=== PATIENT | female | born 1955 | race Caucasian/White ===

== ENCOUNTER 2017-04-06 09:18 | Inpatient (IN) | payer BC ==
[2017-03-15 10:38] VITALS: BMI 31.0
--- NOTE | 2017-03-15 11:05 | PAT Medication Instructions ---
Service Date Mar 15, 2017. Current Home Medication List Aspirin (Aspirin), 1 TAB PO QAM Atorvastatin (Lipitor), 1 TAB PO QPM Enalapril (Vasotec), 20 MG PO QAM Hydrochlorothiazide (Hctz), 1 TAB PO QAM Medication Instructions For Your Scheduled Surgery - Hold the following medications the morning of surgery: Enalapril (Vasotec), 20 MG PO QAM Hydrochlorothiazide (Hctz), 1 TAB PO QAM - Take the following medications the morning of surgery with a sip of water OTHERWISE NOTHING TO EAT OR DRINK AFTER MIDNIGHT: Aspirin (Aspirin), 1 TAB PO QAM - Take the following medications as scheduled the night before surgery: Atorvastatin (Lipitor), 1 TAB PO QPM If you have any questions please call us at [phone] or [phone] or [phone]
--- NOTE | 2017-03-15 11:43 | DIAGNOSTIC IMAGING REPORT ---
CHEST 2 VIEWS ROUTINE CLINICAL HISTORY: Preoperative chest COMPARISON STUDY: No previous studies for comparison. FINDINGS: There is borderline elevation of the right hemidiaphragm. There is no focal pulmonary consolidation. The heart is normal in size. There is no failure. There are no pleural effusions.[ IMPRESSION: No active disease in the chest. Electronically signed by: Seun Edge M.D. 03/15/2017 11:41 AM Dictated Date/Time: 03/15/2017 11:41 AM
[2017-03-15 12:09] LABS: URINE APPEARANCE CLEAR (CLEAR); URINE BILIRUBIN NEG (NEG); URINE COLOR YELLOW; URINE NITRITE NEG (NEG); URINE PH 7.5 (4.5-7.5); URINE SPECIFIC GRAVITY 1.011 (1.000-1.030); UROBILINOGEN NEG (NEG); ZZUR CULT IF INDIC CLEAN CATCH NO
[2017-03-15 12:12] LABS: BASO % 0.5 %; BASO ABS # 0.03 K/uL (0-0.2); COMPLETE YES; EOS % 2.2 %; IG% 0.2 %; LYMPH % 26.6 %; LYMPH ABS # 1.54 K/uL (1.2-3.4); MEAN CELL VOLUME 92.4 fL (80-100); MEAN CORPUSCULAR HEMOGLOBIN 30.9 pg (25-34); MEAN CORPUSCULAR HGB CONC 33.5 g/dl (32-36); MEAN PLATELET VOLUME 9.8 fL (7.4-10.4); MONO % 8.1 %; NEUT % 62.4 %; PLATELET COUNT 379 K/uL (130-400); RED BLOOD COUNT 4.33 M/uL (4.2-5.4); WHITE BLOOD COUNT 5.78 K/uL (4.8-10.8)
[2017-03-15 12:18] LABS: MANUAL MICROSCOPIC REQUIRED? NO; REVIEW REQ? NO
[2017-03-15 12:19] LABS: INR 0.9 (0.9-1.1)
[2017-03-15 12:52] LABS: ESTIMATED AVERAGE GLUCOSE 120 mg/dl; HA1C FLAG Normal (Normal)
[2017-03-15 13:33] LABS: BUN/CREATININE RATIO 15.2 (10-20); CALCIUM 9.6 mg/dl (8.5-10.1); CREATININE 0.91 mg/dl (0.60-1.20); POTASSIUM 4.2 mmol/L (3.5-5.1)
--- NOTE | 2017-04-05 21:56 | History and Physical ---
History & Physical Date & Time of Service: Apr 05, 2017 at 21:49 Chief Complaint: Right Shoulder Rotator Cuff Arthropathy Primary Care Physician: Devan Tena PA-C History of Present Illness Source: patient Social History Smoking Status: Former Smoker Alcohol Use: occasionally Allergies Coded Allergies: NO KNOWN DRUG ALLERGIES (Verified Allergy, Unknown, nkda, 03/15/17) Home Medications Scheduled Aspirin (Aspirin), 1 TAB PO QAM Atorvastatin (Lipitor), 1 TAB PO QPM Enalapril (Vasotec), 20 MG PO QAM Hydrochlorothiazide (Hctz), 1 TAB PO QAM Review of Systems Cardiovascular: + problem reported (HTn, hypercholesterolemia), No chest pain, No orthopnea, No PND, No edema, No claudication, No palpitations Physical Exam General Appearance: WD/WN Head: normocephalic, atraumatic Eyes: PERRL, EOMI Neck: supple Respiratory/Chest: lungs clear Cardiovascular: regular rate, rhythm Abdomen/GI: normal bowel sounds, non tender (shoulder 3/5 strenth, crepitation , pain w ROM.) Impression Assessment and Plan Right shoulder OA and RCT Level of Care Med/Surg Advanced Directives Existing Advance Directive: Yes Existing Living Will: Yes Existing Power of Industrial Court Magistrate: Yes
[2017-04-06] VITALS (7 sets, daily range): BP systolic 104–181; BP diastolic 65–76; PULSE 67–81; TEMP 36.4–38; O2SAT 95–99; Ht 162.6 cm; Wt 82.4 kg
[~2017-04-06] VITALS: Ht 162.6 cm; Wt 82.4 kg
[~2017-04-06 09:18] MED LIST: ACETAMINOPHEN 500 MG TAB PO SCH; ASPI81CH2 PO; ATOR-26 PO; BUPIVACAINE/EPINEPHRINE 0.25% 1:200,000 30 ML VIAL ONE; CEFAZOLIN 2000 MG/60 ML D5W 60 ML IV SCH; CeleBREX 200 MG CAP PO SCH; DEXAMETHASONE 4 MG TAB PO SCH; DEXAMETHASONE SOD INJ 4 MG/ML VIAL ONE; ENAL10TA88 PO; FAMOTIDINE 20 MG TAB PO SCH; GABAPENTIN 300 MG CAP PO SCH; HYDR25TA4 PO; LACTATED RINGER'S 1000ML 1,000 ML IV SCH; METOCLOPRAMIDE HCL 10 MG TAB PO SCH
--- NOTE | 2017-04-06 10:15 | History & Physical Bridge Note ---
H&P Re-Evaluation Bridge Note: I have examined the patient, reviewed the History & Physical and in the interval since the performance of the History & Physical I have noted the following changes of clinical significance: No changes noted
[2017-04-06] MEDS ORDERED: ROCURONIUM BROMIDE 10 MG/ML 5 ML VIAL ONE ×2 (10:20→13:23)
[2017-04-06] MEDS ORDERED: NEOSTIGMINE METHYLSULFATE 5 MG/5 ML SYR ONE (10:20)
[2017-04-06] MEDS ORDERED: PROPOFOL IV EMULSION 10 MG/ML 20 ML VIAL IV ONE (10:20)
[2017-04-06] MEDS ORDERED: FENTANYL CITRATE INJ 50 MCG/1 ML 2 ML VIAL ONE (10:20)
[2017-04-06] MEDS ORDERED: MIDAZOLAM HCL 1 MG/ML 2ML VIAL ONE ×2 (10:20)
[2017-04-06] MEDS ORDERED: GLYCOPYRROLATE INJ 0.2 MG/ML VIAL ONE (10:20)
[2017-04-06] MEDS ORDERED: DEXAMETHASONE SOD INJ 4 MG/ML VIAL ONE (10:20)
[2017-04-06] MEDS ORDERED: ONDANSETRON INJ 2 MG/ML 2 ML VIAL ONE (10:20)
[2017-04-06] MEDS ORDERED: LIDOCAINE HCL 2% 2 ML VIAL (20MG/ML) ONE (10:20)
[2017-04-06] MEDS ORDERED: EpINEphrine HCL INJ 1 MG/ML 5ML SYRINGE ONE (10:51)
[2017-04-06] MEDS ORDERED: PROMETHAZINE HCL INJ 6.25 MG in SODIUM CHLORIDE 0.9% 50ML 50 ML IV PRN (11:45)
[2017-04-06] MEDS ORDERED: FENTANYL CITRATE INJ 50 MCG/1 ML 2 ML VIAL IV PRN (11:45)
[2017-04-06] MEDS ORDERED: ATROPINE SULFATE 0.1 MG/ML 5ML SYR IV PRN (11:45)
[2017-04-06] MEDS ORDERED: EpHEDrine SULFATE INJ 50 MG/ML AMP IV PRN (11:45)
[2017-04-06] MEDS ORDERED: ONDANSETRON INJ 2 MG/ML 2 ML VIAL IV PRN ×2 (11:45→13:30)
[2017-04-06] MEDS ORDERED: ZOLPIDEM TARTRATE 5 MG TAB PO PRN (13:30)
[2017-04-06] MEDS ORDERED: OXYCODONE HCL IR 5 MG TAB (IMMEDIATE RELEASE) PO PRN (13:30)
[2017-04-06] MEDS ORDERED: SOD PHOSPHATE/SOD BIPHOSPHATE ENEMA 132 ML BTL PR PRN (13:30)
[2017-04-06] MEDS ORDERED: MoRPHine SULFATE 2 MG/ML CARP IV PRN (13:30)
[2017-04-06] MEDS ORDERED: PHENYLEPHRINE 100MCG/ML 5ML SYR ONE (13:30)
[2017-04-06] MEDS ORDERED: NALOXONE HCL 0.4 MG/1 ML VIAL/CARP IV PRN (13:30)
[2017-04-06] MEDS ORDERED: EpHEDrine SULFATE 50MG/5ML SYR ONE (13:30)
[2017-04-06] MEDS ORDERED: BISACODYL 10 MG SUPP PR PRN (13:30)
[2017-04-06] MEDS ORDERED: MAGNESIUM HYDROXIDE SUSP 30 ML UDC PO PRN (13:30)
[2017-04-06] MEDS ORDERED: MoRPHine SULFATE 4 MG/ML 1 ML CARP\\VIAL IV PRN (13:45)
[2017-04-06] MEDS ORDERED: BACITRACIN 50000 UNIT VIAL IR ONE (14:18)
--- NOTE | 2017-04-06 14:27 | [facility] Operative Report ---
Operative Report Operative Date Apr 06, 2017. Pre-Operative Diagnosis Right shoulder rotator cuff arthropathy non repairable rotator cuff tear and biceps tendon dislocation Post-Operative Diagnosis same Procedure(s) Performed reversed total shoulder replacement and biceps tenodesis Surgeon Dr. Bang Alicea Vending Route Driver Surgeon(s) Bob Damon PA-C Estimated Blood Loss 100 ML Findings as above Specimens a. right humeral head Drains 2 hemovac Anesthesia general and regional Complication(s) None Disposition Recovery Room / PACU Indications pseudoparalytic arm chronic pain and weakness I attest to the content of the Intraoperative Record and any orders documented therein. Any exceptions are noted below.
--- NOTE | 2017-04-06 15:10 | Anesthesiology Progress Note ---
Anesthesia Post Op Note Date & Time Apr 06, 2017 at 15:10 Vital Signs Pain Intensity: 0 Vital Signs Past 12 Hours Date Time Temp Pulse Resp B/P (MAP) Pulse Ox O2 Delivery O2 Flow Rate FiO2 04/06/17 15:05 36.4 83 14 140/69 95 Nasal Cannula 2 04/06/17 14:55 80 14 124/50 96 Oxymask 10 04/06/17 14:45 73 14 121/54 98 Oxymask 10 04/06/17 14:36 36.7 80 14 139/64 97 Oxymask 10 04/06/17 09:39 36.8 71 20 181/69 99 Room Air Notes Mental Status: alert / awake / arousable, participated in evaluation Pt Amnestic to Procedure: Yes Nausea / Vomiting: adequately controlled Pain: adequately controlled Airway Patency, RR, SpO2: stable & adequate BP & HR: stable & adequate Hydration State: stable & adequate Anesthetic Complications: no major complications apparent
--- NOTE | 2017-04-06 15:31 | DIAGNOSTIC IMAGING REPORT ---
RIGHT SHOULDER MIN 2 VIEWS ROUTINE CLINICAL HISTORY: Post shoulder surgery Right pain COMPARISON: None. DISCUSSION: Evidence for a total right shoulder arthroplasty. Good contact between prosthetic and the Bone. Surgical drains are in position. There is no evidence for soft tissue swelling. IMPRESSION: Anatomic alignment status post total right shoulder replacement Electronically signed by: Otoniel Veras M.D. 04/06/2017 3:29 PM Dictated Date/Time: 04/06/2017 3:29 PM
[2017-04-06] MEDS: D5W AND 1/2NSS + 20MEQ KCL 1,000 ML IV SCH (16:23)
--- NOTE | 2017-04-06 18:14 | Medical Consult ---
Consultation Date of Consultation: Apr 06, 2017 @ 16:00 . Attending Physician: Bang Alicea M.D. . Reason for Consultation: medical management . History of Present Illness 62 YO female followed by Devan Tena PA-C in [place]. History of hypertension, dyslipidemia, and other problems noted below. Reversed total shoulder replacement and biceps tenodesis performed today by Dr. Alicea under general and regional anesthesia. Doing well postoperatively. No chest pain. No cough or dyspnea. No nausea or vomiting. Has Mirza catheter. Postop pain well-controlled. . Past Medical/Surgical History Chronic and Resolved Medical Problems: (1) Carotid artery disease Status: Chronic (2) Dyslipidemia Status: Chronic (3) History of adenomatous polyp of colon Status: Chronic (4) Hypertension Status: Chronic Surgical Problems: (1) Status post arthroscopy of shoulder Status: Chronic (2) Status post colonoscopy Status: Chronic (3) Status post hysterectomy Status: Chronic . Family History FATHER Prostate cancer Thrombocytosis MOTHER Heart disease BROTHER Bladder cancer SISTER Breast cancer GRANDFATHER Heart disease GRANDMOTHER Diabetes mellitus Heart disease Social History Smoking Status: Former Smoker Alcohol Use: socially Allergies Coded Allergies: NO KNOWN DRUG ALLERGIES (Verified Allergy, Unknown, nkda, 04/06/17) Home Medications Reported Home Medications Medications Dose Route/Sig Max Daily Dose Days Date Category Vasotec (Enalapril Maleate) 10 Mg Tab 20 Mg PO QAM 03/15/17 Reported Aspirin 81 Mg Chw 1 Tab PO QAM 30 03/15/17 Reported Hctz (Hydrochlorothiazide) 25 Mg Tab 1 Tab PO QAM 30 03/15/17 Reported Lipitor (Atorvastatin Calcium) 80 Mg Tab 1 Tab PO QPM 30 03/15/17 Reported Current Inpatient Medications Current Inpatient Medications Medications (Trade) Dose Ordered Sig/Calos Route Start Time Stop Time Status Last Admin Dose Admin Celecoxib (CeleBREX CAP) 200 mg PREOP PO 04/06/17 06:00 04/06/17 23:59 04/06/17 10:04 200 MG Dexamethasone (Decadron Tab) 8 mg PREOP PO 04/06/17 06:00 04/06/17 23:59 04/06/17 10:03 8 MG Famotidine (Pepcid Tab) 20 mg PREOP PO 04/06/17 06:00 04/06/17 23:59 04/06/17 10:04 20 MG Gabapentin (Neurontin Cap) 600 mg PREOP PO 04/06/17 06:00 04/06/17 23:59 04/06/17 10:03 600 MG Metoclopramide HCl (Reglan Tab) 10 mg PREOP PO 04/06/17 06:00 04/06/17 23:59 04/06/17 10:03 10 MG Cefazolin Sodium 60 ml @ 100 mls/hr PREOP IV 04/06/17 06:00 04/07/17 05:59 04/06/17 11:42 100 MLS/HR Acetaminophen (Tylenol Tab) 1,000 mg PREOP PO 04/06/17 06:00 04/06/17 23:59 04/06/17 10:04 1,000 MG Aspirin (Ecotrin Tab) 81 mg QAM PO 04/07/17 09:00 05/07/17 08:59 Atorvastatin Calcium (Lipitor Tab) 80 mg QPM PO 04/06/17 21:00 05/06/17 20:59 Enalapril Maleate (Vasotec Tab) 20 mg QAM PO 04/07/17 09:00 05/07/17 08:59 Hydrochlorothiazide (Hydrochlorothiazide Tab) 25 mg QAM PO 04/07/17 09:00 05/07/17 08:59 Diphenhydramine HCl (Benadryl Cap) 25 mg Q8 PRN PO 04/06/17 13:30 05/06/17 13:29 Zolpidem Tartrate (Ambien Tab) 5 mg HSZ PRN PO 04/06/17 13:30 05/06/17 13:29 Ondansetron HCl (Zofran Inj) 4 mg Q6H PRN IV 04/06/17 13:30 05/06/17 13:29 Pantoprazole Sodium (Protonix Tab) 40 mg QAM PO 04/07/17 09:00 05/07/17 08:59 Potassium Chloride/Dextrose/ Sod Cl 1,000 ml @ 100 mls/hr Q10H IV 04/06/17 16:30 04/07/17 16:29 04/06/17 16:23 100 MLS/HR Oxycodone HCl (Roxicodone Immediate Rel Tab) `1-2 TABS FOR PAIN `1 TAB... Q4H PRN PO 04/06/17 13:30 04/20/17 13:29 Oxycodone HCl (Oxycontin Tab) 10 mg Q12 PO 04/06/17 21:00 04/20/17 20:59 Acetaminophen (Tylenol Tab) 1,000 mg Q8 PO 04/06/17 20:00 05/06/17 19:59 Morphine Sulfate (MoRPHine SULFATE INJ) 2 mg Q2H PRN IV 04/06/17 13:30 04/20/17 13:29 Naloxone HCl (Narcan Inj) 0.1 mg Q2M PRN IV 04/06/17 13:30 05/06/17 13:29 Magnesium Hydroxide (Milk Of Magnesia Susp) 30 ml Q6H PRN PO 04/06/17 13:30 05/06/17 13:29 Bisacodyl (Dulcolax Supp) 10 mg DAILY PRN [place] 04/06/17 13:30 05/06/17 13:29 Sodium Biphosphate/ Sodium Phosphate (Fleet Enema) 132 ml DAILY PRN [place] 04/06/17 13:30 05/06/17 13:29 Docusate Sodium (coLACE CAP) 100 mg BID PO 04/06/17 21:00 05/06/17 20:59 Multivitamins (Multivitamin Tab) 1 tab DAILY PO 04/07/17 09:00 05/07/17 08:59 Cefazolin Sodium 2000 mg/Dextrose 60 ml @ 100 mls/hr Q8H IV 04/06/17 20:00 04/07/17 04:35 Morphine Sulfate (MoRPHine SULFATE INJ) 4 mg Q2H PRN IV 04/06/17 13:45 04/20/17 13:44 Review of Systems Constitutional: No fever, No weight loss Respiratory: No cough, No shortness of breath Cardiovascular: No chest pain Abdomen: No nausea, No vomiting, No GI bleeding Musculoskeletal: + joint pain (right shoulder) Genitourinary - Female: No dysuria, No hematuria Hematologic / Lymphatic: No abnormal bleeding/bruising Physical Exam Date Time Temp Pulse Resp B/P (MAP) Pulse Ox O2 Delivery O2 Flow Rate FiO2 04/06/17 17:29 38.0 79 16 126/76 (93) 98 Nasal Cannula 2.0 04/06/17 16:34 36.4 71 18 115/73 (87) 95 Nasal Cannula 2.0 04/06/17 16:00 36.5 67 18 104/65 (78) 96 Nasal Cannula 2.0 04/06/17 15:30 98 Nasal Cannula 2.0 04/06/17 15:30 37.0 81 16 111/70 (84) 96 04/06/17 15:30 Nasal Cannula 2.0 04/06/17 15:15 36.4 71 14 122/58 95 Nasal Cannula 2 04/06/17 15:05 36.4 83 14 140/69 95 Nasal Cannula 2 04/06/17 14:55 80 14 124/50 96 Oxymask 10 04/06/17 14:45 73 14 121/54 98 Oxymask 10 04/06/17 14:36 36.7 80 14 139/64 97 Oxymask 10 04/06/17 09:39 36.8 71 20 181/69 99 Room Air General Appearance: WD/WN, no apparent distress Head: normocephalic, atraumatic Eyes: PERRL, EOMI, sclerae normal ENT: normal ENT inspection, hearing grossly normal, pharynx normal Neck: supple, no adenopathy Respiratory/Chest: lungs clear, no respiratory distress, no accessory muscle use Cardiovascular: regular rate, rhythm, no edema, no gallop, no JVD, + systolic murmur (II/ sys murmur at base) Abdomen/GI: normal bowel sounds, non tender, soft, no organomegaly Extremities/Musculoskelatal: no calf tenderness, + pertinent finding (right shoulder bandaged; RUE immobilized; TEDS and SCD's applied to lower extremities) Neurologic/Psych: silk brusher II-XII nml as tested (PERRL, EOMI, no facial palsy, no dysarthria), no motor/sensory deficits (motor strenth grossly intact), alert, oriented x 3 Skin: normal color, warm/dry, no rash Laboratory Results Preadmission testing: Item Value Date Time Hemoglobin 13.4 g/dL 03/15/17 1112 White Blood Count 5.78 K/uL 03/15/17 1112 Platelet Count 379 K/uL 03/15/17 1112 Prothrombin Time 10.0 SECONDS 03/15/17 1112 Prothromb Time International Ratio 0.9 03/15/17 1112 Activated Partial Thromboplast Time 24.7 SECONDS 03/15/17 1112 Sodium Level 138 mmol/L 03/15/17 1112 Potassium Level 4.2 mmol/L 03/15/17 1112 Chloride Level 102 mmol/L 03/15/17 1112 Carbon Dioxide Level 30 mmol/L 03/15/17 1112 Blood Urea Nitrogen 14 mg/dl 03/15/17 1112 Creatinine 0.91 mg/dl 03/15/17 1112 Random Glucose 89 mg/dl 03/15/17 1112 Hemoglobin A1c 5.8 % H 03/15/17 1112 Urine Protein NEG 03/15/17 1112 Urine Glucose (UA) NEG 03/15/17 1112 Urine Ketones NEG 03/15/17 1112 Urine Occult Blood NEG 03/15/17 1112 Urine Nitrite NEG 03/15/17 1112 Urine Bilirubin NEG 03/15/17 1112 Urine Urobilinogen NEG 03/15/17 1112 Urine Leukocyte Esterase NEG 03/15/17 1112 CHEST 2 VIEWS ROUTINE CLINICAL HISTORY: Preoperative chest COMPARISON STUDY: No previous studies for comparison. FINDINGS: There is borderline elevation of the right hemidiaphragm. There is no focal pulmonary consolidation. The heart is normal in size. There is no failure. There are no pleural effusions.[ IMPRESSION: No active disease in the chest. Electronically signed by: Seun Edge M.D. 03/15/2017 11:41 AM Dictated Date/Time: 03/15/2017 11:41 AM EKG performed 03/15/17 at 11:16 reviewed and demonstrated NSR at 60 / minute, no acute ST or T-wave abnormalities. . Assessment & Plan STATUS POST REVERSED TOTAL SHOULDER REPLACEMENT AND BICEPS TENODESIS Doing well postoperatively. HYPERTENSION BP's stable postoperatively. Resume HCTZ on POD # 2. Continue enalapril with hold parameters. DYSLIPIDEMIA Continue atorvastatin. CAROTID ARTERY DISEASE Continue aspirin. Continue management of hypertension and dyslipidemia. VTE PROPHYLAXIS Per Ortho protocol. Thank you for this consultation. We will follow the patient with you during their hospital stay. You can reach a [facility] via pager @ [phone]. You can reach me via cell @ [phone]. .
--- NOTE | 2017-04-06 18:24 | [facility] Operative Report ---
Operative Report Operative Date Apr 06, 2017. Pre-Operative Diagnosis Right shoulder rotator cuff arthropathy non repairable rotator cuff tear and biceps tendon dislocation Post-Operative Diagnosis same Procedure(s) Performed Right shoulder reversed total shoulder arthroplasty. The patient was taken to the operating room and anesthetized under regional block and general anesthetic. The patient was positioned on the operating table in a 30 beachchair position with a towel roll under due to border of the right scapula. The arm was draped free to be able to manipulate the shoulder as needed. The right upper extremity was prepped and draped in usual sterile fashion. Exam demonstrated excellent range of motion with subacromial crepitation.. An anterior deltopectoral approach was performed. A longitudinal incision was made in the deltopectoral interval. The skin was incised. Subcutaneous flaps were elevated off the fascia. The cephalic vein was dissected out and retracted lateral with the deltoid. The clavipectoral fascia was divided at the lateral margin of the conjoined tendon and extended up to the CA ligament. The following findings were noted. There was a thickened bursitis over the rotator cuff area. There was a complete rotator cuff tear involving the supraspinatus and infraspinatus tendons with retraction felt to be nonrepairable. The upper subscapularis tendon was also torn with the biceps tendon dislocated underneath the subscapularis tendon anteriorly. There was mild to moderate degenerative changes mainly the upper humeral head from being exposed and impingement. The upper centimeter of the pectoralis was released for inferior exposure. The biceps tendon was tenodesed to the pectoralis tendon with #2 FiberWire. The proximal biceps was resected. The subacromial bursa was thoroughly resected revealing the underlying rotator cuff pathology. The subscapularis tendon was taken down off the lesser tuberosity using a subperiosteal dissection. A #1 Vicryl traction suture was placed into the free end of the subscapularis tendon and capsule. The subscapular muscle fibers were split longitudinally at the level of the circumflex vessels. The circumflex vessels were identified and tied off with silk ties and divided laterally. A Kitner elevator was used to free up the inferior fibers of the subscapularis off of the capsule. The capsule was divided with Palomino scissors down to the glenoid released off the anterior glenoid and the rotator interval was released to meet the capsular release and a 360 release of the subscapularis was accomplished. We did identify the axillary nerve tug test and protected with the blunt Hohmann retractor. A Fukuda retractor was placed into the joint. Glenoid findings demonstrated intact articular cartilage and labrum and biceps anchor.. The labrum and biceps tendon was resected. An anterior-inferior and posterior inferior capsular release were performed with electrocautery and a Zavaleta elevator on bone with the nerve protected inferiorly by the retractor. The Tornier reversed shoulder replacement system was used using the Nadeem and flex humeral component and Aequalis glenoid components. Attention was then taken to the humeral preparation. The cutting guide was placed into the humeral head. It was positioned at 20 of retroversion. Oscillating saw was used to resect the humeral head giving the cut above the level of the posterior rotator cuff insertion site. The right was then retracted posterior to the glenoid. The glenoid was sized for a 25 mm baseplate. The guide for the baseplate was positioned in a 10 inferior tilt and the central drill hole was made. The reamer for the 25 mm baseplate was used. The central drill was widened for the peg. The 25 mm baseplate was impacted into position. The plate was transfixed with superior and inferior locking screws and anterior and posterior compression screws with stable fixation. The fan reamer was used for the 36 millimeter glenoid sphere. After irrigation the glenoid sphere was impacted onto the baseplate and the screw was tightened. Fixation was assessed is stable. Humeral preparation was then performed. A central awl was used followed by broaches up to a size 4 . This had the appropriate fit and fill. A +0 centered reversed tray baseplate was then placed. A trial reduction was performed. A[+6 mm] trial insert demonstrated good stability and no shuck. The trials were removed. 3 drill holes are made into the harder bone in the bicipital groove area and 3 #5 FiberWire sutures were placed transosseously. The canal was irrigated with antibiotic solution with bacitracin. The final component was assembled. The final component was for B longstem descend flex stem with +0 centered reversed tray with 36 mm +6 reversed insert. This was then impacted into the humerus with a tight press-fit. It was reduced to the glenoid sphere. Stability was verified. Subscapularis was repaired with the # 5 FiberWire sutures using Drew-Shukri suture technique. Lateral row soft tissue repair was performed with #2 FiberWire [id number] sutures. The pectoralis was repaired with #2 FiberWire [id number] sutures reinforcing the biceps tendon tenodesis. The arm was taken through a range of motion which demonstrated no tension on repair through 50 of external rotation 150 of forward elevation and 90 of abduction. The implant was stable through full range of motion tested. The wound was copiously irrigated. 2 Hemovac drains were placed. The deltopectoral interval was closed with [id number] #1 Vicryl sutures. The subcutaneous tissues were closed with 2-0 Vicryl sutures. The skin was closed with zenaida. Sterile dressings were applied and a shoulder immobilizer. Bob FISCHER My physician commercial lending assistant assisted in the procedure to the entire procedure including patient positioning arm positioning prepping and draping soft tissue retraction insert management suture management and perform the subcutaneous and skin closure and will dissipate in the postoperative care of the patient. Surgeon Dr. Bang Alicea Car Salesperson Surgeon(s) Bob Damon PA-C Estimated Blood Loss 100 ML Findings Nonrepairable rotator cuff early rotator cuff arthropathy biceps dislocation Specimens a. right humeral head Drains 2 hemovac Anesthesia general and regional Complication(s) None Disposition Recovery Room / PACU Indications Pseudo-paralytic arm chronic nonrepairable rotator cuff tear early rotator cuff arthropathy failed conservative management I attest to the content of the Intraoperative Record and any orders documented therein. Any exceptions are noted below.
[2017-04-06] MEDS: ACETAMINOPHEN 500 MG TAB PO SCH (19:30)
[2017-04-06] MEDS: CEFAZOLIN IV 2,000 MG in DEXTROSE 5% 50ML 50 ML IV SCH (19:32)
[2017-04-06] MEDS: OXYCODONE HCL 10 MG TABCR (OXYCONTIN) PO SCH (21:05)
[2017-04-06] MEDS: ATORVASTATIN 40 MG TAB PO SCH (21:05)
[2017-04-06] MEDS: DOCUSATE SODIUM 100 MG CAP PO SCH (21:06)
[2017-04-07] MEDS: D5W AND 1/2NSS + 20MEQ KCL 1,000 ML IV SCH (01:34)
[2017-04-07 03:51] VITALS: BP 119/75; PULSE 75; TEMP 36.5; O2SAT 95
[2017-04-07] MEDS: CEFAZOLIN IV 2,000 MG in DEXTROSE 5% 50ML 50 ML IV SCH (04:12)
[2017-04-07 05:50] LABS: HEMATOCRIT 32.6 % (37-47); MEAN CELL VOLUME 92.9 fL (80-100); MEAN CORPUSCULAR HEMOGLOBIN 30.8 pg (25-34); MEAN CORPUSCULAR HGB CONC 33.1 g/dl (32-36); MEAN PLATELET VOLUME 9.7 fL (7.4-10.4); PLATELET COUNT 334 K/uL (130-400); RED BLOOD COUNT 3.51 M/uL (4.2-5.4); WHITE BLOOD COUNT 12.88 K/uL (4.8-10.8)
[2017-04-07] MEDS: ACETAMINOPHEN 500 MG TAB PO SCH ×3 (05:51→21:50)
[2017-04-07 06:24] LABS: BUN/CREATININE RATIO 12.6 (10-20); CREATININE 0.89 mg/dl (0.60-1.20); POTASSIUM 4.7 mmol/L (3.5-5.1)
[2017-04-07 06:49] LABS: CALCIUM 9.2 mg/dl (8.5-10.1)
[2017-04-07 07:05] VITALS: BP 114/64; PULSE 65; TEMP 36.8; O2SAT 94
--- NOTE | 2017-04-07 07:49 | Orthopedic Progress Note ---
Orthopedic Progress Note Date of Service Apr 07, 2017. Subjective Post OP Day: 1 Reports: feeling well, Denies: complaints, chest pain, SOB, nausea / vomiting, light headedness Additional Notes: Awake, alert. Pain controlled at present. Objective dressing C/D/I, A&O x3, hemovac drainage (25ml latest shift) Moving the wrist/hand/fingers well of the RUE. Still having some residual decreased sensation in the hand. Date Time Temp Pulse Resp B/P (MAP) Pulse Ox O2 Delivery O2 Flow Rate FiO2 04/07/17 07:05 36.8 65 18 114/64 (81) 94 Room Air 04/07/17 03:51 36.5 75 16 119/75 (90) 95 Room Air 04/06/17 22:55 36.4 76 16 117/66 (83) 96 Room Air 04/06/17 19:20 Room Air 04/06/17 18:31 36.6 69 18 112/68 (83) 96 Nasal Cannula 2.0 04/06/17 17:29 38.0 79 16 126/76 (93) 98 Nasal Cannula 2.0 04/06/17 16:34 36.4 71 18 115/73 (87) 95 Nasal Cannula 2.0 04/06/17 16:00 36.5 67 18 104/65 (78) 96 Nasal Cannula 2.0 04/06/17 15:30 98 Nasal Cannula 2.0 04/06/17 15:30 37.0 81 16 111/70 (84) 96 04/06/17 15:30 Nasal Cannula 2.0 04/06/17 15:15 36.4 71 14 122/58 95 Nasal Cannula 2 04/06/17 15:05 36.4 83 14 140/69 95 Nasal Cannula 2 04/06/17 14:55 80 14 124/50 96 Oxymask 10 04/06/17 14:45 73 14 121/54 98 Oxymask 10 04/06/17 14:36 36.7 80 14 139/64 97 Oxymask 10 04/06/17 09:39 36.8 71 20 181/69 99 Room Air Laboratory Results 24 Hours: Test 04/07/17 05:19 Hematocrit 32.6 % Hemoglobin 10.8 g/dL Assessment & Plan Assessment: POD 1 s/p Right Reverse TSA Plan: PT/OT today Planning for home with OPPT Inhouse Planning Pain Management: Oxycontin, Morphine, Oxy IR DVT Prophylaxis: TEDs, SCDs, ASA Discharge Planning Discharge Planning: home with oppt
[2017-04-07] MEDS: DOCUSATE SODIUM 100 MG CAP PO SCH ×2 (08:35→21:49)
[2017-04-07] MEDS: ENALAPRIL MALEATE 10 MG TAB PO SCH (08:36)
[2017-04-07] MEDS: ASPIRIN 81 MG ECTAB PO SCH (08:37)
[2017-04-07] MEDS: MULTIVITAMIN TAB PO SCH (08:37)
[2017-04-07] MEDS: PANTOprazole SOD 40 MG TAB PO SCH (08:38)
[2017-04-07] MEDS: OXYCODONE HCL 10 MG TABCR (OXYCONTIN) PO SCH ×2 (08:41→21:50)
[2017-04-07] MEDS ORDERED: HYDROCHLOROTHIAZIDE 25 MG TAB PO SCH (09:00)
--- NOTE | 2017-04-07 10:21 | Anesthesiology Progress Note ---
Anesthesia Post Op Note Date & Time Apr 07, 2017 at 10:20 Vital Signs Pain Intensity: 0.0 Vital Signs Past 12 Hours Date Time Temp Pulse Resp B/P (MAP) Pulse Ox O2 Delivery O2 Flow Rate FiO2 04/07/17 07:05 36.8 65 18 114/64 (81) 94 Room Air 04/07/17 03:51 36.5 75 16 119/75 (90) 95 Room Air 04/06/17 22:55 36.4 76 16 117/66 (83) 96 Room Air Notes Mental Status: alert / awake / arousable, participated in evaluation Pt Amnestic to Procedure: Yes Nausea / Vomiting: adequately controlled Pain: adequately controlled Airway Patency, RR, SpO2: stable & adequate BP & HR: stable & adequate Hydration State: stable & adequate Anesthetic Complications: no major complications apparent
[2017-04-07 10:57] VITALS: BP 107/67; PULSE 66; TEMP 36.3; O2SAT 98
[2017-04-07] MEDS ORDERED: NURSING VERBAL MED ORDER ONE ×2 (12:15→14:00)
[2017-04-07] MEDS ORDERED: KETOROLAC TROMETHAMINE 15 MG/ML VIAL IV. SCH (14:00)
[2017-04-07] MEDS: KETOROLAC TROMETHAMINE 30 MG/ML VIAL IV. SCH ×2 (14:20→21:09)
[2017-04-07 15:40] VITALS: O2SAT 98
--- NOTE | 2017-04-07 16:23 | Discharge Instructions ---
Discharge Instructions Date of Service Apr 07, 2017. Admission Reason for Admission: Right Shoulder Rotator Cuff Arthropathy Discharge Discharge Diagnosis / Problem: Right shoulder rotator cuff arthropathy non repairable rotator cuff tear Discharge Goals Goal(s): Decrease discomfort, Improve function Activity Recommendations Activity Limitations: per Instructions/Follow-up section Weightbearing Status: Right non-weightbearing . Instructions / Follow-Up Instructions / Follow-Up ACTIVITY RECOMMENDATIONS: SELF CARE INSTRUCTIONS AFTER TOTAL SHOULDER ARTHROPLASTY REVERSE A. You may do daily exercises as taught in physical therapy while in hospital. No lifting with the operative arm. B. You are to wear your sling/immobilizer at all times EXCEPT when performing your daily exercises and for hygiene purposes. C. You may perform dry, daily dressing changes. Please keep your incision covered. You may shower 48 hours after surgery. Do not apply soap or any ointment/ lotions directly over incision. Do not soak incision in bath tub/swimming pool. D. You may use ice as needed to operative shoulder. SPECIAL CARE INSTRUCTIONS: VERY IMPORTANT TO READ AND REVIEW A. There are a few signs you need to watch for after you are home. Call [facility] at [phone] if you experience any of the followin. Increased severe shoulder pain. Some pain is expected especially when you exercise. 2. Increased swelling in you shoulder or arm; pain or swelling in either upper extremity. 3. Any fluid drainage from the incision. 4. Shortness of breath or chest pain. B. Please call [facility] at [phone] if you have any questions or concerns about your operation or recovery. C. Call your physician if: 1. Temperature is greater than 101 degrees (F). 2. Pain is not relieved by prescribed pain medications. 3. Increase drainage or redness from incision. 4. Unanswered questions or concerns. FOLLOW UP VISIT: Please call [facility] at [phone] to schedule a follow up appointment with Dr. Alicea or his PA in 12-14 days from your surgery date. Current Hospital Diet Patient's current hospital diet: Regular Diet Discharge Diet Recommended Diet: Regular Diet Procedures Procedures Performed: Right Reversed Total Shoulder Arthroplasty Pending Studies Studies pending at discharge: no Laboratory Results Hemoglobin A1c Test 03/15/17 11:12 Range/Units Estimated Average Glucose 120 mg/dl Hemoglobin A1c 5.8 H 4.5-5.6 % Medical Emergencies . Who to Call and When: Medical Emergencies: If at any time you feel your situation is an emergency, please call 911 immediately. . Non-Emergent Contact Non-Emergency issues call your: Surgeon Call Non-Emergent contact if: temperature is above 101.5, your pain is not controlled, your pain is worsening, wound has increased drainage, wound has increased redness . "Provider Documentation" section prepared by Bob Damon. . VTE Core Measure Inpt VTE Proph given/why not?: Other Anticoagulation, T.E.D. Stockings, SCD's [place] Drug Monitoring Program Search Results: patient reviewed within database, no issues identified
[2017-04-07 16:27] VITALS: BP 131/71; PULSE 63; TEMP 36.5; O2SAT 96
[2017-04-07] MEDS: ATORVASTATIN 40 MG TAB PO SCH (22:18)
[2017-04-07 23:19] VITALS: BP 106/62; PULSE 62; TEMP 37; O2SAT 90
[2017-04-08] MEDS: KETOROLAC TROMETHAMINE 30 MG/ML VIAL IV. SCH ×2 (01:48→07:07)
--- NOTE | 2017-04-08 04:58 | Progress Note ---
Medicine Progress Note Date & Time of Visit: Apr 07, 2017 at 11:50 . Subjective Doing well postoperatively. No chest pain. No cough or dyspnea. No nausea or vomiting. Mirza removed. Postop pain well-controlled. . Objective Last 8 Hrs Date Time Temp Pulse Resp B/P (MAP) Pulse Ox O2 Delivery O2 Flow Rate FiO2 04/07/17 10:57 36.3 66 18 107/67 (80) 98 Room Air 04/07/17 08:30 Room Air 04/07/17 07:05 36.8 65 18 114/64 (81) 94 Room Air Physical Exam: General- sitting in chair, no distress Lungs- clear Heart- RRR Abdomen- + BS, soft, nontender Extremities- RUE immobilized; TEDS applied; no pretibial edema or calf tenderness Neuro- alert . Laboratory Results: Last 24 Hours Test 04/07/17 05:19 White Blood Count 12.88 K/uL Red Blood Count 3.51 M/uL Hemoglobin 10.8 g/dL Hematocrit 32.6 % Mean Corpuscular Volume 92.9 fL Mean Corpuscular Hemoglobin 30.8 pg Mean Corpuscular Hemoglobin Concent 33.1 g/dl RDW Standard Deviation 45.3 fL RDW Coefficient of Variation 13.4 % Platelet Count 334 K/uL Mean Platelet Volume 9.7 fL Sodium Level 141 mmol/L Potassium Level 4.7 mmol/L Chloride Level 107 mmol/L Carbon Dioxide Level 28 mmol/L Anion Gap 6.0 mmol/L Blood Urea Nitrogen 11 mg/dl Creatinine 0.89 mg/dl Est Creatinine Clear Calc Drug Dose 67.2 ml/min Estimated GFR () 79.9 Estimated GFR (Non- 69.0 BUN/Creatinine Ratio 12.6 Random Glucose 129 mg/dl Calcium Level 9.2 mg/dl Assessment & Plan STATUS POST REVERSED TOTAL SHOULDER REPLACEMENT AND BICEPS TENODESIS Doing well postoperatively. HYPERTENSION BP's stable. Continue enalapril and HCTZ with hold parameters. DYSLIPIDEMIA Continue atorvastatin. CAROTID ARTERY DISEASE Continue aspirin. Continue management of hypertension and dyslipidemia. VTE PROPHYLAXIS Per Ortho protocol. Thank you for this consultation. We will follow the patient with you during their hospital stay. You can reach a [facility] via pager @ . You can reach me via cell @ [phone]. . Current Inpatient Medications: Current Inpatient Medications Medications (Trade) Dose Ordered Sig/Calos Route Start Time Stop Time Status Last Admin Dose Admin Aspirin (Ecotrin Tab) 81 mg QAM PO 04/07/17 09:00 05/07/17 08:59 04/07/17 08:37 81 MG Atorvastatin Calcium (Lipitor Tab) 80 mg QPM PO 04/06/17 21:00 05/06/17 20:59 04/06/17 21:05 80 MG Enalapril Maleate (Vasotec Tab) 20 mg QAM PO 04/07/17 09:00 05/07/17 08:59 04/07/17 08:36 20 MG Diphenhydramine HCl (Benadryl Cap) 25 mg Q8 PRN PO 04/06/17 13:30 05/06/17 13:29 Zolpidem Tartrate (Ambien Tab) 5 mg HSZ PRN PO 04/06/17 13:30 05/06/17 13:29 Ondansetron HCl (Zofran Inj) 4 mg Q6H PRN IV 04/06/17 13:30 05/06/17 13:29 Pantoprazole Sodium (Protonix Tab) 40 mg QAM PO 04/07/17 09:00 05/07/17 08:59 04/07/17 08:38 40 MG Oxycodone HCl (Roxicodone Immediate Rel Tab) `1-2 TABS FOR PAIN `1 TAB... Q4H PRN PO 04/06/17 13:30 04/20/17 13:29 04/07/17 12:19 10 MG Oxycodone HCl (Oxycontin Tab) 10 mg Q12 PO 04/06/17 21:00 04/20/17 20:59 04/07/17 08:41 10 MG Acetaminophen (Tylenol Tab) 1,000 mg Q8 PO 04/06/17 20:00 05/06/17 19:59 04/07/17 05:51 1,000 MG Morphine Sulfate (MoRPHine SULFATE INJ) 2 mg Q2H PRN IV 04/06/17 13:30 04/20/17 13:29 Naloxone HCl (Narcan Inj) 0.1 mg Q2M PRN IV 04/06/17 13:30 05/06/17 13:29 Magnesium Hydroxide (Milk Of Magnesia Susp) 30 ml Q6H PRN PO 04/06/17 13:30 05/06/17 13:29 Bisacodyl (Dulcolax Supp) 10 mg DAILY PRN [place] 04/06/17 13:30 05/06/17 13:29 Sodium Biphosphate/ Sodium Phosphate (Fleet Enema) 132 ml DAILY PRN [place] 04/06/17 13:30 05/06/17 13:29 Docusate Sodium (coLACE CAP) 100 mg BID PO 04/06/17 21:00 05/06/17 20:59 04/07/17 08:35 100 MG Multivitamins (Multivitamin Tab) 1 tab DAILY PO 04/07/17 09:00 05/07/17 08:59 04/07/17 08:37 1 TAB Morphine Sulfate (MoRPHine SULFATE INJ) 4 mg Q2H PRN IV 04/06/17 13:45 04/20/17 13:44 Hydrochlorothiazide (Hydrochlorothiazide Tab) 25 mg QAM PO 04/08/17 09:00 05/07/17 08:59 Ketorolac Tromethamine (Toradol Inj) 30 mg Q6H IV. 04/07/17 14:00 04/08/17 13:59
[2017-04-08] MEDS: ACETAMINOPHEN 500 MG TAB PO SCH (05:48)
[2017-04-08 05:56] LABS: HEMATOCRIT 30.8 % (37-47); MEAN CELL VOLUME 93.6 fL (80-100); MEAN CORPUSCULAR HEMOGLOBIN 31.3 pg (25-34); MEAN CORPUSCULAR HGB CONC 33.4 g/dl (32-36); MEAN PLATELET VOLUME 9.7 fL (7.4-10.4); PLATELET COUNT 282 K/uL (130-400); RED BLOOD COUNT 3.29 M/uL (4.2-5.4); WHITE BLOOD COUNT 10.14 K/uL (4.8-10.8)
[2017-04-08 06:33] LABS: BUN/CREATININE RATIO 16.3 (10-20); CALCIUM 8.9 mg/dl (8.5-10.1); CREATININE 1.1 mg/dl (0.60-1.20); POTASSIUM 4.4 mmol/L (3.5-5.1)
[2017-04-08 06:58] VITALS: BP 150/74; PULSE 69; TEMP 36.6; O2SAT 90
[2017-04-08] MEDS: PANTOprazole SOD 40 MG TAB PO SCH (07:07)
[2017-04-08] MEDS: MULTIVITAMIN TAB PO SCH (07:07)
[2017-04-08 07:10] VITALS: O2SAT 93
[2017-04-08] MEDS: OXYCODONE HCL 10 MG TABCR (OXYCONTIN) PO SCH (07:10)
[2017-04-08] MEDS: ASPIRIN 81 MG ECTAB PO SCH (07:11)
[2017-04-08] MEDS: DOCUSATE SODIUM 100 MG CAP PO SCH (07:11)
[2017-04-08] MEDS: ENALAPRIL MALEATE 10 MG TAB PO SCH (07:11)
--- NOTE | 2017-04-08 07:14 | Orthopedic Progress Note ---
Orthopedic Progress Note Date of Service Apr 08, 2017. Subjective Post OP Day: 2 Reports: feeling well, pain controlled w PO medications, Denies: complaints, chest pain, SOB, nausea / vomiting, light headedness, calf pain Objective N/V intact, capillary refill less than 2 sec., dressing C/D/I, A&O x3 sling in tact, fingers mobile. Date Time Temp Pulse Resp B/P (MAP) Pulse Ox O2 Delivery O2 Flow Rate FiO2 04/08/17 06:58 36.6 69 16 150/74 (99) 90 Room Air 04/07/17 23:19 37.0 62 16 106/62 (77) 90 Room Air 04/07/17 23:07 Room Air 04/07/17 16:27 36.5 63 17 131/71 (91) 96 Room Air 04/07/17 15:40 98 Room Air 04/07/17 10:57 36.3 66 18 107/67 (80) 98 Room Air 04/07/17 08:30 Room Air Laboratory Results 24 Hours: Test 04/08/17 05:10 Hematocrit 30.8 % Hemoglobin 10.3 g/dL Assessment & Plan Assessment: POD 2 s/p Right Reverse TSA Plan: PT/OT today Planning for home today as per medicine Inhouse Planning Pain Management: Oxycontin, Morphine, Oxy IR DVT Prophylaxis: TEDs, SCDs, ASA Discharge Planning Discharge Planning: home with oppt
[2017-04-08] MEDS ORDERED: OXYSR10 PO (07:18)
[2017-04-08] MEDS ORDERED: ONDA8TAB6 PO (07:18)
[2017-04-08] MEDS ORDERED: RXC5 PO (07:18)
[2017-04-08] MEDS ORDERED: ACET-24 PO (07:18)
[2017-04-08] MEDS ORDERED: ZOLP5TAB PO (07:37)
[2017-04-08] MEDS ORDERED: HYDROCHLOROTHIAZIDE 25 MG TAB PO SCH (09:00)
[2017-04-08 09:03] VITALS: BP 150/74; PULSE 69; TEMP 36.6; O2SAT 93
--- NOTE | 2017-04-13 12:14 | Discharge Summary ---
Orthopedic Discharge Summary Admission Date/Reason Apr 06, 2017 at 10:00 Right Shoulder Rotator Cuff Arthropathy. Discharge Date/Disposition Apr 08, 2017 Home Diagnosis Principal Diagnosis: Right Shoulder Rotator Cuff Arthroscopy Secondary Diagnoses/Problems: Htn, Hypercholesterolemia Procedure(s) Performed Right Reverse TSA / Biceps Tenodesis Consultations Dr Byron Bolton Medication Reconciliation New Medications: Ondansetron Hcl (Zofran) 8 Mg Tab 8 MG PO Q8H PRN for Nausea, #20 TAB Zolpidem Tartrate (Ambien) 5 Mg Tab 1 TAB PO HS PRN for Sleep for 10 Days, #10 TAB 2 Refills Acetaminophen (Sb Non-Aspirin Extra Stre) 500 Mg Tab 1000 MG PO Q8 for 21 Days, #126 TAB Oxycodone HCl (Oxycontin) 10 Mg Tabcr 10 MG PO Q12, #20 Oxycodone HCl (Oxycodone HCl) 5 Mg Tab 5-10 MG PO Q4H PRN for Pain, #60 TAB Continued Medications: Aspirin (Aspirin) 81 Mg Chw 1 TAB PO QAM for 30 Days, #30 TAB 3 Refills Atorvastatin (Lipitor) 80 Mg Tab 1 TAB PO QPM for 30 Days, TAB 5 Refills Enalapril (Vasotec) 10 Mg Tab 20 MG PO QAM, TAB Hydrochlorothiazide (Hctz) 25 Mg Tab 1 TAB PO QAM for 30 Days, #30 TAB 5 Refills Admission Physical Exam As per Admitting History & Physical. Hospital Course Patient was admitted on the above-noted date and had the above-noted surgery performed of which she tolerated well. On her first postoperative day, she was alert and oriented. Pain control was adequate. She stated that the regional block was being to wear off. She denied any other symptoms including chest pain , shortness of breath, or lightheadedness. Dressings were clean dry and intact , she was moving her fingers and had some residual numbness from the regional block. Hemoglobin was 10.8. She was started on physical therapy protocol and continued on pain management. Dr. Bolton was consulted for postoperative medical management and continued to see the patient during her stay. By her second postoperative day, she continued to remain medically stable as well as orthopedically stable. Vital signs continued to remain stable and it was felt that she can be discharged home. Discharge Instructions Please refer to the electronic Patient Visit Report (Discharge Instructions) for additional information.
[2018-04-06] MEDS ORDERED: LACTATED RINGER'S 1000ML IV SCH (06:00)
[2018-04-06] MEDS ORDERED: CEFAZOLIN 2000 MG/60 ML D5W 60 ML IV SCH (06:00)
[2018-04-06] MEDS ORDERED: ACETAMINOPHEN 500 MG TAB PO SCH (06:00)
== END 2017-04-08 11:30 | disposition home or self-care (01) | DRG 483 ==
LOC: C.ACU 09:18 → C.3E 10:00 → ENRESERV 14:50
PROVIDERS: ADMIT Orthopaedic Surgery Sports Medicine; ATTEND Orthopaedic Surgery Sports Medicine
PROC: 0RRJ00Z Replacement of Right Shoulder Joint with Reverse Ball and Socket Synthetic Substitute, Open Approach (ICD-10-PCS; principal; 2017-04-06 11:30)
PROC: 0LS30ZZ Reposition Right Upper Arm Tendon, Open Approach (ICD-10-PCS; principal; 2017-04-06 11:30)
DX: M12.811 Other specific arthropathies, not elsewhere classified, right shoulder (principal); M75.101 Unspecified rotator cuff tear or rupture of right shoulder, not specified as traumatic; M75.51 Bursitis of right shoulder; M75.81 Other shoulder lesions, right shoulder; I10 Essential (primary) hypertension; I65.29 Occlusion and stenosis of unspecified carotid artery; E78.00 Pure hypercholesterolemia, unspecified; E78.5 Hyperlipidemia, unspecified; E66.9 Obesity, unspecified; Z68.31 Body mass index [BMI] 31.0-31.9, adult; Z87.891 Personal history of nicotine dependence; Z79.82 Long term (current) use of aspirin; Z79.899 Other long term (current) drug therapy